=== PATIENT | male | born 1995 | race Caucasian/White ===

== ENCOUNTER 2020-02-12 10:13 | Emergency (ER) | payer OTHER ==
[~2020-02-12] VITALS: Ht 193 cm; Wt 73.9 kg
--- OUTSIDE RECORDS SUMMARY | ~2020-02-12 | XMS | Encounter Summary ---
Demographics + + + | Address | [address] [place] [address] | | | [place] [address] | + + + | Home Phone | | + + + | Preferred Language | Unknown | + + + | Marital Status | Unknown | + + + | Church Affiliation | Unknown | + + + | Race | White | + + + | Ethnic Group | Not or | + + + Author + + + | Author | [facility] | | | and [place] | + + + | Organization | [facility] | | | and [place] | + + + | Address | Unknown | + + + | Phone | Unavailable | + + + Support + + +---------+ + | Name | Relationship | Address | Phone | + + +---------+ + | Tez Tim | ECON | Unknown | | + + +---------+ + Care Team Providers + +------+ + | Care Software Publisher Name | Role | Phone | + +------+ + | Nawaf Russell MD | PCP | | | PhD | | | + +------+ + Reason for Referral Evaluate & Treat (Routine) + + + + + + + | Status | Reason | Specialty | Diagnoses / | Referred By | Referred To | | | | | Procedures | Contact | Contact | + + + + + + + | Authorized | Specialty | Urology | Diagnoses | [facility] | [facility] | | | Services | | Dysuria | MD Janet | [address] | | | Required | | History of | [address] | | | | | prostatitis | [address]VD | [place], [place] | | | | | Urinary | [place] | [address] | | | | | incontinence | [address] | Phone: | | | | | , | Phone: | [phone] | | | | | unspecified | [phone] | Fax: | | | | | type | Fax: | [phone] | | | | | | [phone] | | + + + + + + + Reason for Visit + + + | Reason | Comments | + + + | Establish Care | URI | + + + Evaluate & Treat (Routine) + +--------+ + + + + | Status | Reason | Specialty | Diagnoses / | Referred By | Referred To | | | | | Procedures | Contact | Contact | + +--------+ + + + + | Authorized | | Infectious | Diagnoses | Yvonne, | [facility] | | | | Diseases | Hx of upper | Nawaf, | Infectious | | | | | respiratory | [address] | [address] | | | | | infection | [address] | | | | | | [address] | [place], [place] | | | | | | [place], | [address] | | | | | | [place] [address] | Phone: | | | | | | Phone: | [phone] | | | | | | [phone] | Fax: | | | | | | Fax: | [phone] | | | | | | [phone] | | + +--------+ + + + + Encounter Details +--------+---------+ + + + | Date | Type | Department | Care Team | Description | +--------+---------+ + + + | 02/06/ | Office | [facility] | [place], | Malaise and fatigue | | 2020 | Visit | INFECTIOUS DISEASE | MD Janet [address] | (Primary Dx); Cough; | | | | [address] | [address] | History of | | | | [place], [place] | [place] [address] | streptococcal | | | | [address] | [phone] | infection; Dysuria; | | | | [phone] | | History of | | | | | | prostatitis; Urinary | | | | | | incontinence, | | | | | | unspecified type | +--------+---------+ + + + Social History + +-------+ +--------+------+ | Tobacco Use | Types | Packs/Day | Years | Date | | | | | Used | | + +-------+ +--------+------+ | Never Assessed | | | | | + +-------+ +--------+------+ + + + | Sex Assigned at | Date Recorded | | | | + + + | Not on file | | + + + documented as of this encounter Last Filed Vital Signs + + + + + | Vital Sign | Reading | Time Taken | Comments | + + + + + | Blood Pressure | 105/69 | 02/07/2020 3:38 PM | | | | | PDT | | + + + + + | Pulse | 77 | 02/07/2020 3:38 PM | | | | | PDT | | + + + + + | Temperature | 36.9 C (98.5 F) | 02/07/2020 3:38 PM | | | | | PDT | | + + + + + | Respiratory Rate | 16 | 02/07/2020 3:38 PM | | | | | PDT | | + + + + + | Oxygen Saturation | 99% | 02/07/2020 3:38 PM | | | | | PDT | | + + + + + | Inhaled Oxygen | - | - | | | Concentration | | | | + + + + + | Weight | 76.2 kg (168 lb) | 02/07/2020 3:38 PM | | | | | PDT | | + + + + + | Height | - | - | | + + + + + | Body Mass Index | - | - | | + + + + + documented in this encounter Patient Instructions Patient Instructions Janet Lazaro MD - 02/07/2020 3:40 PM PDT1. Keep fever/symptom diary 2. Do lab work, CXR P DT documented in this encounter Plan of Treatment +--------+---------+ + + + | Date | Type | Specialty | Care Team | Description | +--------+---------+ + + + | 02/26/ | Office | Infectious Diseases | [place], | | | 2019 | Visit | | MD Janet [address] | | | | | | [place] | | | | | | [place] [address] | | | | | | [phone] | | | | | | | | +--------+---------+ + + + + + +--------+ + + | Name | Type | Priori | Associated Diagnoses | Order Schedule | | | | ty | | | + + +--------+ + + | Culture, Blood | Microbiolog | Routin | Malaise and | Expected: | | | y | e | fatigue | 02/07/2020, Expires: | | | | | | 02/06/2021 | + + +--------+ + + | Culture, Blood | Microbiolog | Routin | Malaise and | Expected: | | | y | e | fatigue | 02/07/2020, Expires: | | | | | | 02/06/2021 | + + +--------+ + + | Coxsackie A Antibody | Lab | Routin | Malaise and | 1 Occurrences | | Panel | | e | fatigue | starting 02/07/2020 | | | | | | until 02/06/2021 | + + +--------+ + + | Coxsackie Virus B Ab | Lab | Routin | Malaise and | 1 Occurrences | | Panel | | e | fatigue | starting 02/07/2020 | | | | | | until 02/06/2021 | + + +--------+ + + | Coccidioides Ab, | Lab | Routin | Malaise and | 1 Occurrences | | Total, Serum, ID and | | e | fatigue Cough | starting 02/07/2020 | | CF | | | | until 02/06/2021 | + + +--------+ + + | Urinalysis with | Lab | Routin | Malaise and | Expected: | | Microscopic with | | e | fatigue Urinary | 02/07/2020, Expires: | | Culture if Indicated | | | incontinence, | 02/06/2021 | | | | | unspecified type | | + + +--------+ + + | GC/Chlam Aptima | Microbiolog | Routin | Dysuria History | Expected: | | | y | e | of prostatitis | 02/07/2020, Expires: | | | | | Urinary | 02/06/2021 | | | | | incontinence, | | | | | | unspecified type | | + + +--------+ + + | Immunoglobulin, | Lab | Routin | Malaise and | 1 Occurrences | | Panel, IgG and IgM | | e | fatigue | starting 02/07/2020 | | and IgA | | | | until 02/06/2021 | + + +--------+ + + | HIV 1 and 2 Ab, | Lab | Routin | Malaise and | 1 Occurrences | | Reflex | | e | fatigue | starting 02/07/2020 | | | | | | until 02/06/2021 | + + +--------+ + + | XR Chest PA and | Imaging | Routin | Cough | Expected: | | Lateral | | e | | 02/07/2020, Expires: | | | | | | 02/06/2021 | + + +--------+ + + | Vitamin D, | Lab | Routin | Malaise and | 1 Occurrences | | Deficiency Screen | | e | fatigue | starting 02/07/2020 | | (25-Hydroxy) | | | | until 02/06/2021 | + + +--------+ + + + + +--------+ + + | Name | Type | Priori | Associated Diagnoses | Order Schedule | | | | ty | | | + + +--------+ + + | Ambulatory Referral | Outpatient | Routin | Dysuria History | Ordered: 02/07/2020 | | to [facility] | Referral | e | of prostatitis | | | | | | Urinary | | | | | | incontinence, | | | | | | unspecified type | | + + +--------+ + + documented as of this encounter Visit Diagnoses + + | Diagnosis | + + | Malaise and fatigue - Primary Other malaise and fatigue | + + | Cough | + + | History of streptococcal infection Personal history of other infectious and parasitic | | disease | + + | Dysuria | + + | History of prostatitis Personal history of other specified diseases | + + | Urinary incontinence, unspecified type | + + documented in this encounter"
--- OUTSIDE RECORDS SUMMARY | ~2020-02-12 | XMS | Clinical Summary ---
Demographics + + + | Address | [address] [place] [address] | | | [place] [address] | + + + | Home Phone | | + + + | Preferred Language | Unknown | + + + | Marital Status | Unknown | + + + | Quaker Affiliation | Unknown | + + + | Race | White | + + + | Ethnic Group | Not or | + + + Author + + + | Author | [facility] | | | and [place] | + + + | Organization | [facility] | | | and [...] Team Providers + +------+ + | Care Drive Tester Name | Role | Phone | + +------+ + | Nawaf Russell MD | PCP | | | PhD | | | + +------+ + Allergies No Known Allergies Medications + +-----+ +---------+------+------+-------+ | Medication | Sig | Dispensed | Refills | Star | End | Statu | | | | | | t | Date | s | | | | | | Date | | | + +-----+ +---------+------+------+-------+ | ondansetron | | | 0 | 09/0 | | Activ | | (ZOFRAN) 8 MG tablet | | | | 2/20 | | e | | | | | | 20 | | | + +-----+ +---------+------+------+-------+ | albuterol 90 | | | 0 | 08/2 | | Activ | | mcg/puff inhaler | | | | 0/20 | | e | | | | | | 20 | | | + +-----+ +---------+------+------+-------+ Active Problems No known active problems Encounters +--------+---------+ + + + | Date | Type | Specialty | Care Team | Description | +--------+---------+ + + + | 02/06/ | Office | Infectious Diseases | [place], | Malaise and fatigue | | 2020 | Visit | | MD Janet | (Primary Dx); Cough; | | | | | | History of | | | | | | streptococcal | | | | | | infection; Dysuria; | | | | | | History of | | | | | | prostatitis; Urinary | | | | | | incontinence, | | | | | | unspecified type | +--------+---------+ + + + from Last 3 Months Social History + +-------+ +--------+------+ | Tobacco [...] on file | | + + + Last Filed Vital Signs + + + [...] | | + + + + + Plan of Treatment +--------+---------+ + + + | Date | Type | Specialty | Care Team | Description | +--------+---------+ + + + | 02/26/ | Office | Infectious Diseases | [place], | | | 2019 | Visit | | MD [address] | | | | | | [address] | | | | | | [place] [address] | | | | | | [phone] | | | | | | | | +--------+---------+ + + + + + +-------+ + | Health Maintenance | Due Date | Last | Comments | | | | Done | | + + +-------+ + | Hepatitis C | | | | | Screening | 3 | | | + + +-------+ + | Vaccine: | | | | | Dtap/Tdap/Td (1 - | 2 | | | | Tdap) | | | | + + +-------+ + | Vaccine: Influenza | | | | | (#1) | 0 | | | + + +-------+ + Results Not on filefrom Last 3 Months Insurance + +--------+ +--------+ +---------+------+ | Payer | Benefi | Subscriber | Effect | Phone | Address | Type | | | t Plan | ID | guerrero | | | | | | / | | Dates | | | | | | Group | | | | | | + +--------+ +--------+ +---------+------+ | [employer] | PHP | [id number] | 12/23/19 | [phone] | | PPO | | PLAN | PERSON | | 20-Pre | 5 | | | | | AL | | sent | | | | | | OPEN | | | | | | | | OPTION | | | | | | + +--------+ +--------+ +---------+------+ + +--------+ +--------+ + + | Guarantor Name | Accoun | Relation to | Date | Phone | Billing Address | | | t Type | Patient | of | | | | | | | | | | + +--------+ +--------+ + + | Tani Amos | Person | Self [birth year] | [address] | | | al/Fam | | 1995 | [phone] | [place] | | | daniela | | | [address] (Home) | [address] | + +--------+ +--------+ + + Advance Directives + + + + + | Type | Date Recorded | Patient | Explanation | | | | Clinical Resource Director | | + + + + + | Power of | | | | | Xray Tech | | | | + + + + + | Advance | | | | | Directive | | | | + + + + +"
[2020-02-12] MEDS ORDERED: ONDANSETRON HCL8 MG PO (11:01)
[2020-02-12] MEDS ORDERED: VENTOLIN HFA18 GM INH (11:01)
== END 2020-02-12 12:57 | disposition home or self-care (01) ==
LOC: ED 10:13
DX: K59.00 Constipation, unspecified (principal); R10.13 Epigastric pain
CPT/HCPCS: 74018; 80053; 83735; 85025; 99283-25